=== PATIENT | male | born 1990 | race Caucasian/White ===

== ENCOUNTER 2016-11-27 14:28 | Emergency (ER) | payer MEDICARE, OTHER ==
[2016-11-27 14:46] VITALS: BP 149/108
--- NOTE | 2016-11-27 15:16 | UC ---
Throat Pain/Nasal Vin HPI - HPI Summary HPI Summary: 36 y/o male w/ PMHX HTN, ESRD presents to the urgent care c/o sore throat, nasal congestion and dry cough since yesterday. Pt is concern w/ pneumonia. Pt reports his cough is dry, he has mild difficulty swallowing. Pt denies fever , SOB, chest pain, N/V/D. Pt states he hasn't taking his BP medication yet today. Pt has not other complains. - History of Current Complaint Chief Complaint: UCRespiratory Stated Complaint: COUGH Time Seen by Provider: 11/27/16 14:44 Hx Obtained From: Patient Onset/Duration: Gradual Onset, Lasting Days, Still Present Severity: Mild Pain Intensity: 0 Pain Scale Used: 0-10 Numeric Cough: Nonproductive Associated Signs & Symptoms: Positive: Dysphagia, Nasal Discharge - yellowish discharge. Negative: Fever, Rash - Epiglottits Risk Factors Epiglottis Risk Factors: Negative - Allergies/Home Medications Allergies/Adverse Reactions: Allergies Allergy/AdvReac Type Severity Reaction Status Date / Time Amoxicillin Allergy Intermediate Rash Verified 11/27/16 14:46 TASIA Inhibitors Allergy Coughing Verified 11/27/16 14:46 Polystyrene [From Kayexalate] Allergy Vomiting Verified 11/27/16 14:46 Valsartan [From Diovan] Allergy Coughing Verified 11/27/16 14:46 Home Medications: Home Medications Calcium Citrate TAB* [Citracal TAB*] 200 mg PO DAILY 11/27/16 [History Confirmed 11/27/16] Levothyroxine TAB* [Synthroid TAB*] 175 mcg PO 0600 11/27/16 [History Confirmed 11/27/16] PMH/Surg Hx/FS Hx/Imm Hx Previously Healthy: Yes Other Endocrine History: ESRD Cardiovascular History: Hypertension, Pacemaker/ICD, Congestive Heart Failure Other Cardiovascular History: Cardiomyopathy Other History Of: Anticoagulant Therapy - for PE in the past. - Surgical History Surgical History: Yes Surgery Procedure, Year, and Place: groshung R chest wall. fisula- R arm. cardiac cath. difibular placement. thyroid and parathyroid removed - Family History Known Family History: Positive: Cardiac Disease, Hypertension - Social History Occupation: Disabled Lives: With Family Alcohol Use: None Substance Use Type: None Smoking Status (MU): Heavy Every Day Tobacco Smoker Type: Cigarettes Amount Used/How Often: 1/2 ppd Length of Time of Smoking/Using Tobacco: since age 15 - used to chew tobacco Have You Smoked in the Last Year: Yes Household Exposure Type: Cigarettes - Immunization History Most Recent Influenza Vaccination: 2013 Most Recent Tetanus Shot: 2011 Most Recent Pneumonia Vaccination: unk Review of Systems Constitutional: Negative Skin: Negative Eyes: Negative ENT: Sore Throat, Nasal Discharge - yellowish discharge, Sinus Congestion Respiratory: Negative Cardiovascular: Negative Gastrointestinal: Negative Genitourinary: Negative Motor: Negative Neurovascular: Negative Musculoskeletal: Negative Neurological: Negative Psychological: Negative All Other Systems Reviewed And Are Negative: Yes Physical Exam Triage Information Reviewed: Yes Appearance: Well-Appearing - 26 male siiting in a wheel chair in no apperent distress, well nourished. Vital Signs: Initial Vital Signs Temp 98.8 F 11/27/16 14:38 Pulse 96 11/27/16 14:38 Resp 16 11/27/16 14:38 BP 149/108 11/27/16 14:38 Pulse Ox 98 11/27/16 14:38 Vital Signs Reviewed: Yes Eye Exam: Normal Eyes: Positive: Conjunctiva Clear - PERRLA, EOMI, fundi grossly normal ENT Exam: Normal ENT: Positive: Normal ENT inspection, Hearing grossly normal, Pharyngeal erythema - no exudate, Nasal congestion - Edematous nasal mucosa, Nasal drainage - clear nasal discharge Dental Exam: Normal Neck exam: Normal Neck: Positive: Supple, Nontender, No Lymphadenopathy Respiratory Exam: Normal Respiratory: Positive: Chest non-tender, Lungs clear, Normal breath sounds, No respiratory distress Cardiovascular Exam: Normal Cardiovascular: Positive: RRR, No Murmur, Pulses Normal Abdominal Exam: Normal Abdomen Description: Positive: Nontender, No Organomegaly, Soft. Negative: CVA Tenderness (R), CVA Tenderness (L) Bowel Sounds: Positive: Present Musculoskeletal Exam: Normal Musculoskeletal: Positive: Strength Intact, ROM Intact - of upper extremities, No Edema Neurological Exam: Normal Psychological Exam: Normal Skin Exam: Normal Throat Pain/Nasal Course/Dx - Course Course Of Treatment: 36 y/o male w/ PMHX HTN, ESRD presents to the urgent care c /o sore throat, nasal congestion and dry cough since yesterday. Pt is concern w / pneumonia. Pt reports his cough is dry, he has mild difficulty swallowing. Pt denies fever, SOB, chest pain, N/V/D. Pt states he hasn't taking his BP medication yet today. HX obtained. Rapid Strep ordered, result: negative. Pt Advised to increase fluids, rest and take Tylenol q6hrs he has at home to alleviate symptoms. Rx flonase to alleviate nasal congestion and postnasal drip. Pt BP: 149/108 today. Pt jennifer's taking his medication today. Advised on decrease salt intake and meidcation complaince and f/u with his PCP for further management. Pt understood and agreed. PE abnormal findings: - Differential Dx/Diagnosis Differential Diagnosis/HQI/PQRI: Laryngitis, Mononucleosis, Pharyngitis, Sinusitis, Tonsillitis, URI Provider Diagnoses: 1- Viral pharyngitis. 2- Uncontrolled HTN w/ ESRD Discharge - Discharge Plan Condition: Stable Disposition: HOME Prescriptions: Fluticasone NASAL SPRAY 50MCG* [Flonase NASAL SPRAY 50MCG*] 2 spray BOTH NARES DAILY #1 btl Patient Education Materials: Pharyngitis (ED), Low Sodium Diet (ED) Referrals: Carmelo Wilkes MD [Medical Doctor] - If Needed Additional Instructions: increase fluid intake and rest. Use Flonase as directed to help drain fluid. Take Acetaminophen to allevaite symptoms of pain. Return to the clinic or f/u with your PCP if symptoms do not improve. 2- Your BP is elevated today please take your medication a soon as you get home. decrease salt in your diet and f/u with your PCP for further evaluation and treatment.
== END 2016-11-27 15:34 | disposition home or self-care (01) ==
LOC: UCCORT 14:28
DX: J02.8 Acute pharyngitis due to other specified organisms (principal); I13.2 Hypertensive heart and chronic kidney disease with heart failure and with stage 5 chronic kidney disease, or end stage renal disease; N18.6 End stage renal disease; F17.210 Nicotine dependence, cigarettes, uncomplicated; I50.9 Heart failure, unspecified; Z95.810 Presence of automatic (implantable) cardiac defibrillator; Z86.711 Personal history of pulmonary embolism; Z88.3 Allergy status to other anti-infective agents
CPT/HCPCS: 87651; 99212; G0463